=== PATIENT | female | born 1955 | race Caucasian/White ===

== ENCOUNTER 2024-03-05 12:02 | Outpatient (CLI) | payer MEDICARE | END 2024-03-05 12:03 | disposition home or self-care (01) | LOC: CSHMAMMO 12:02 | PROVIDERS: ATTEND Family Medicine | DX: Z12.31 Encounter for screening mammogram for malignant neoplasm of breast (principal) | CPT/HCPCS: 77063; 77067 ==

== ENCOUNTER 2025-03-03 14:09 | Outpatient (CLI) | payer MEDICARE | END 2025-03-03 14:10 | disposition home or self-care (01) | LOC: CSHMAMMO 14:09 | PROVIDERS: ATTEND Family Medicine | DX: R23.4 Changes in skin texture (principal); Z85.3 Personal history of malignant neoplasm of breast | CPT/HCPCS: 76642; 77066; G0279 ==